=== PATIENT | female | born 1980 | race African-American/Black ===

== ENCOUNTER 2019-05-04 22:30 | Emergency (ER) | payer MEDICARE, MEDICAID ==
[~2019-05-04 22:30] MED LIST: BACL0.13; ELAVIL; LORAPOW16
[2019-05-04 22:47] VITALS: BP 103/79
== END 2019-05-05 00:48 | disposition home or self-care (01) ==
LOC: ER 22:34
DX: Z00.00 Encounter for general adult medical examination without abnormal findings (principal); Z88.0 Allergy status to penicillin; Z88.8 Allergy status to other drugs, medicaments and biological substances; Z79.899 Other long term (current) drug therapy